=== PATIENT | female | born 1975 | race Caucasian/White ===

== ENCOUNTER 2020-03-02 10:46 | Emergency (ER) | payer SELFPAY ==
[2020-03-02 10:49] VITALS: BMI 32.8
[2020-03-02 10:53] VITALS: BP 116/86; PULSE 75; RESP 16; TEMP 36.8; O2SAT 97
--- NOTE | 2020-03-02 11:04 | ED_ITS ---
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 and no drainage have been MD complaint: abscess/boil Tetanus up to date: unsure Location: back Severity: mild Quality: aching Pain Consistency: constant Associated symptoms: Reports no associated symptoms; Deny chills, fever(s), nausea or vomiting Review of Systems Const: Denies: fever(s), chills or body aches Eyes: Denies: change in vision or blurry vision ENMT: Denies: throat pain or nasal congestion Card: Denies: chest pain or dyspnea on exertion Resp: Denies: dyspnea, productive cough or non-productive cough GI: Denies: abdominal pain, nausea or vomiting Musc: Denies: extremity pain Skin/Breast: Reports: skin swelling (Right shoulder blade area); Denies: rash Neuro: Denies: headache(s) Psych: Denies: anxiety or depression Iván/Lymph: Denies: easy bruising PFS ED PFSH: Social History (Updated 11/13/19 @ 10:07 by Kalani Lutz LPN) Smoking and tobacco status: current every day smoker Physical Exam Const: COMMON NORMALS: no acute distress, average body habitus and patient oriented x3 HENMT: COMMON NORMALS: normocephalic HEAD & SCALP: normal to inspection and normocephalic FACE & SINUS: normal facial exam Eye: COMMON NORMALS: conjunctivae normal GENERAL EYE: appearance normal, both eyes and all related structures CONJUNCTIVA: Yes conjunctivae normal Neck/C-Spine: COMMON NORMALS: no JVD Chest: COMMONS NORMALS: normal inspection of the chest Resp: COMMON NORMALS: normal respiratory effort and clear to auscultation bilaterally AUSCULTATION: clear to auscultation bilaterally Cardio: COMMON NORMALS: no JVD, regular rate and regular rhythm RATE: regular rate RHYTHM: regular rhythm GI: COMMON NORMALS: Normal to inspection, nondistended, normoactive bowel sounds present Extremity: COMMON NORMALS: normal to inspection and full ROM Neuro: COMMON NORMALS: patient oriented x3 Skin: OTHER: Area of erythema to the right shoulder blade firm and tender Course Vital Signs: Vital signs: Vital Signs Temperature 98.2 F 03/02/20 10:53 Pulse Rate 75 03/02/20 10:53 Respiratory Rate 16 03/02/20 10:53 Blood Pressure 116/86 03/02/20 10:53 Pulse Oximetry 97 03/02/20 10:53 Discharge Plan Discharge Prescriptions: No Action buspirone 5 mg tablet 5 mg PO ONCE PRNRF: 0 Coding Level of Care Code ED Rivet Machine Operator for Mars Meyer
[2020-03-02] MEDS: lidocaine 1% INJ 20 mL INTRADERMA (11:25)
[2020-03-02 11:57] VITALS: BP 114/82; PULSE 72; RESP 17; O2SAT 98
== END 2020-03-02 11:57 | disposition home or self-care (01) ==
PROVIDERS: Emergency Provider Nurse Practitioner Family; PCP Nurse Practitioner Family
DX: L98.9 Disorder of the skin and subcutaneous tissue, unspecified (principal); F17.210 Nicotine dependence, cigarettes, uncomplicated
CPT/HCPCS: 12345; 99281; 99282; J2001

== ENCOUNTER → 2020-10-22 12:23 | Outpatient (BNVA) | payer SELFPAY | PROVIDERS: PCP Nurse Practitioner Family; Visit Provider Family Medicine | DX: Z20.828 Contact with and (suspected) exposure to other viral communicable diseases (principal) | CPT/HCPCS: 87635 ==

== ENCOUNTER 2021-01-02 09:30 | Emergency (ER) | payer SELFPAY ==
[2021-01-02] VITALS (7 sets, daily range): BP systolic 96–138; BP diastolic 61–80; PULSE 60–92; RESP 14–19; TEMP 36.6; O2SAT 91–99; BMI 34.7
--- NOTE | 2021-01-02 10:38 | CT_ITS ---
WS: [id number] CT ABDOMEN PELVIS TECHNIQUE: Contrast-enhanced CT of the abdomen and pelvis with coronal and sagittal reformatted image s. CLINICAL INFORMATION: hx of ovarian cyst/mass, worsening pain COMPARISON: None. DLP: 1833.[address] scans at [facility] use at least one of these dose optimization techniques: automat ed exposure control; mA and/or kV adjustment per patient size (includes targeted exams where dose is matched to clinical indication); or iterative reconstruction. FINDINGS: No available comparisons. Large low-attenuation lobulated pelvic mass extending into the upper abdomen in the midline. This dem onstrates multiple enhancing internal septations and measures approximately 31.3 x 13.3 x 21.5 cm. Th is appears well encapsulated with peripheral enhancing ovarian tissue. This is presumably ovarian in origin and likely arising from the right ovary/adnexa. Small amount of fluid along the right adnexa. No significant free fluid in the abdomen or pelvis. Large mass displaces the bowel loops in the abdom en and pelvis. The bladder and uterus are completely compressed anteriorly. Craniocaudal mass effect on the sigmoid colon and rectum which is compressed posteriorly along the sacrum. Lung bases are well aerated. Normal liver. Portal vein and splenic vein are patent. Normal gallbladde r. Normal spleen. Normal GE junction. Adrenal glands are normal. Normal renal parenchymal enhancement . Mild right hydronephrosis. Mild right ureterectasis presumably due to ureteral compression along th e mid and distal ureter from the large pelvic mass. No hydronephrosis in the left kidney. Normal panc reatic parenchymal enhancement. Normal caliber abdominal aorta. CT/CT abdomen pelvis w con* [id number] IMPRESSION: 1. Large low-attenuation well encapsulated pelvic mass extending into the uppe r abdomen with internal enhancing septations. This is CODING ASSISTANT in origin and likely arises from the right ovary. Differential considerations include serous or muci nous cystadenoma or cystadenocarcinoma. Recommend surgical consultation for res ection. 2. Eccentric compression of the surrounding bowel loops in the abdomen and pel vis. Uterus and bladder compressed anteriorly and sigmoid colon/rectum are comp ressed dorsally. 3. Mild right hydronephrosis with mild right ureterectasis due to compression of the ureter in the mid and distal pelvis due to the large CODING ASSISTANT mass. Left uret er appears decompressed. 4. No abdominal or pelvic lymphadenopathy. No inguinal lymphadenopathy. Notified Cassy Talbot MD at 01/02/2021 12:22 PM.
[2021-01-02] MEDS: fentaNYL 50 mcg/mL INJ 2mL 100 MCG IVP (10:42)
[2021-01-02] MEDS: ondansetron 2 mg/ML SDV 2 mL 4 MG IVP (10:42)
--- NOTE | 2021-01-02 10:45 | ED_ITS ---
HPI - Abdominal Pain General: Chief Complaint: Abdominal Pain Stated Complaint: PAIN WITH ABD MASS Time Seen by Provider: 01/02/21 10:25 Source: patient Mode of arrival: ambulatory Limitations: no limitations History of Present Illness: HPI narrative: 45-year-old female with a rapidly enlarging pelvic mass, diagnosed as ovarian neoplasm at an outside hospital when she was visiting out of town. She followed up outpatient there, and has surgery scheduled for January 20, however she lives in this area and wants to have her care locally. She is also becoming more and more uncomfortable, and hoping that she can get the surgery sooner. She started having abdominal distention proximately 3 month ago. Progressed rapidly, now she is unable to work, she is finding it difficult to urinate, she cannot lay on her back due to the weight of the mass. She denies any vaginal bleeding or discharge. She had a normal Pap smear at the outpatient follow-up 2 weeks ago. She has decreased appetite, feels full quickly. Denies any lower extremity edema. She does have shortness of breath due to the compressive effect of the mass. He does have a family history of colon and breast cancer. MD elicited complaint: abdominal pain Pertinent past history: gastrointestinal bleeding Associated Symptoms: Reports bloating and heartburn; Denies change in bowel habits, chills, dysuria, excessive flatus, fever(s), hematemesis, nausea and vomiting Review of Systems General: Reports: 10 or more systems reviewed and unremarkable except in HPI and below Const: Reports: body aches, change in appetite, change in weight, fatigue and malaise; Denies: fever(s), chills, night sweats or diaphoresis ENMT: Denies: odynophagia or oral sores Card: Denies: chest pain, palpitations, irregular heart rhythm, edema or swelling of feet/ankles Resp: Reports: dyspnea; Denies: non-productive cough or wheezing GI: Reports: abdominal pain, heartburn and bloating; Denies: nausea, vomiting, hematemesis, excessive flatus, change in bowel habits, pain on defecation or rectal swelling : Reports: difficulty voiding and urinary frequency; Denies: dysuria Musc: Denies: neck pain or back pain Skin/Breast: Denies: rash or pruritus Neuro: Reports: difficulty walking; Denies: headache(s), numbness in extremities or weakness in extremities Psych: Reports: sleeping less; Denies: anxiety or depression Endo: Reports: tired all the time; Denies: polyuria or polydipsia Iván/Lymph: Denies: easy bruising, easy bleeding, petechiae or purpura PFSH ED PFSH: Social History Smoking and tobacco status: current every day smoker cigarettes Packs smoked per day: 1 Alcohol intake: current Alcohol intake frequency: holidays/special occasions only Physical Exam Const: COMMON NORMALS: patient oriented x3, healthy appearing, alert and well nourished GENERAL APPEARANCE: cooperative; not in distress NUTRITIONAL APPEARANCE: overweight ORIENTATION/CONSCIOUSNESS: Yes awake, Yes oriented to person, Yes oriented to place and Yes oriented to time HENMT: COMMON NORMALS: normocephalic and atraumatic HEAD & SCALP: normocephalic and atraumatic FACE & SINUS: normal facial exam and face symmetric Eye: COMMON NORMALS: Equal, round and reactive pupils present, EOMs intact bilaterally, conjunctivae normal and no scleral icterus GENERAL EYE: appearance normal, both eyes and all related structures ALIGNMENT: Yes alignment normal PERIORBITAL: periorbital findings normal EYELID: eyelids normal CONJUNCTIVA: Yes conjunctivae normal Neck/C-Spine: COMMON NORMALS: full ROM and no lymphadenopathy; negative for no JVD Chest: COMMONS NORMALS: normal inspection of the chest and normal palpation of entire chest wall Cardio: COMMON NORMALS: regular rate and regular rhythm; negative for no JVD RATE: regular rate RHYTHM: regular rhythm GI: INSPECTION: No Abdominal wall edema, No Anasarca and Yes abdominal distension AUSCULTATION: Yes normoactive bowel sounds PALPATION: Yes Firmness to palpation present (GI), No Guarding due to palpation present (GI), No Rigid due to palpation, Yes Palpable mass present (Entire abdomen, proximal size of 40-week gestation) and No Pulsatile mass present Extremity: COMMON NORMALS: normal to inspection, full ROM, capillary refill normal and no clubbing, cyanosis or edema Neuro: COMMON NORMALS: patient oriented x3, CN's II-XII intact bilaterally, moves all extremities, no focal motor deficits and no sensory deficits noted SENSORIUM/ORIENTATION: Yes alert, Yes oriented to person, Yes oriented to place and Yes oriented to time Skin: COMMON NORMALS: no rashes or lesions noted, no wounds, turgor normal, no jaundice, no petechiae and no mottling GENERAL SKIN EXAM: no rashes or lesions noted and turgor normal Course Vital Signs: Vital signs: Vital Signs Temperature 97.9 F 01/02/21 09:47 Pulse Rate 60 01/02/21 14:48 Respiratory Rate 18 01/02/21 14:48 Blood Pressure 108/62 01/02/21 14:48 Pulse Oximetry 98 01/02/21 14:48 MDM - Abdominal Pain MDM Narrative: Medical decision making narrative: 45-year-old female with rapidly growing pelvic mass, originating from the right ovary. She is very uncomfortable, but in no acute distress at this time. Her vital signs are normal, she is not in any respiratory distress. CBC and chemistry nonacute. Discussed the CT findings with Dr. Radford, SINK MAKER. She will try and see the patient on Tuesday in clinic to make sure that she gets set up with [facility] in [place]. This kind of surgery will require higher level of care center. Unless there is suspicion for torsion, there is no indication for surgical intervention emergently at this time. She does not have tenderness, her lactic acid level is normal, and it would be highly unusual for a mass this size to become torsed, so my suspicion for that is very low. I explained all this to the patient and her . They were understandably upset and frustrated that they would have to continue waiting for resolution to this problem, but I assured them that it was of utmost importance that the surgery be done properly?which requires careful planning and preparation. I will also submit a referral to Dr. Garcia, [facility] in [place]. I recommended that she return immediately to the ER if she developed severe pain, if she was unable to urinate, she developed a fever or chest pain. Medical Records: Attestation: I reviewed the patient's medical records. Lab Data: Attestation: I reviewed the patient's lab results. Labs: Lab Results 01/02/21 01/02/21 01/02/21 Range/Units 10:30 10:43 10:43 WBC 8.7 (4.0-10.0) 10^3/ uL RBC 5.27 (4.1-5.3) 10^6/u L Hgb 15.3 (11.5-15.3) g/dL Hct 51.9 H (37.0-47.0) % MCV 98.5 (81-99) fL MCH 29.0 (28.0-34.0) pg MCHC 29.5 L (30.0-36.0) g/dL RDW 13.0 (12.1-15.1) % Plt Count 232 (130-400) 10^3/c mm MPV 11.5 H (7.4-10.4) fL Neut % (Auto) 64.9 % Lymph % (Auto) 27.3 % Carver % (Auto) 5.4 % Eos % (Auto) 1.3 % Baso % (Auto) 0.9 % Neut # (Auto) 5.66 (1.8-7.7) 10^3/u L Lymph # (Auto) 2.4 (0.8-4.8) 10^3/u L Carver # (Auto) 0.5 (0.2-0.9) 10^3/u L Eos # (Auto) 0.1 (0.0-0.8) 10^3/u L Baso # (Auto) 0.1 (0.0-0.1) 10^3/u L Nucleated RBC % (a uto) 0 % Nucleated RBCs # 0.0 /100WBC Sodium 135 L (136-145) mmol/L Potassium 4.2 (3.5-5.1) mmol/L Chloride 103 (98-107) mmol/L Carbon Dioxide 20 L (22-29) mmol/L Anion Gap 16.2 (5-19) BUN 9 (6-20) mg/dL Creatinine 0.8 (0.5-0.9) mg/dL GFR Calculation 77.9 L (90-130) mL/min Glucose 90 (65-115) mg/dL Calculated Osmolal ity 278 L (285-295) mOsm/k g Lactate 1.2 (0.5-2.2) mmol/L Calcium 9.2 (8.5-10.5) mg/dL Total Bilirubin 0.3 (0.15-1.2) mg/dL AST 15 (0-32) U/L ALT 12 (0-33) U/L Alkaline Phosphata se 97 (35-105) IU/L Lactate Dehydrogen ase 150 (135-214) U/L C-Reactive Protein 4.7 (0.0-4.9) mg/L Total Protein 7.4 (6.6-8.7) g/dL Albumin 4.2 (3.5-5.2) g/dL Globulin 3.2 (1.3-4.6) g/dL Urine Color (Yellow) Urine Appearance (CLEAR) Urine pH (5-7) Ur Specific Gravit y (1.005-1.030) Urine Protein (Negative) Urine Glucose (UA) (Normal) Urine Ketones (Negative) Urine Blood (Negative) Urine Nitrate (Negative) Urine Bilirubin (Negative) Urine Urobilinogen (Negative) mg/dL Ur Leukocyte Nuria ase (Negative) 01/02/21 Range/Units 11:30 WBC (4.0-10.0) 10^3/ uL RBC (4.1-5.3) 10^6/u L Hgb (11.5-15.3) g/dL Hct (37.0-47.0) % MCV (81-99) fL MCH (28.0-34.0) pg MCHC (30.0-36.0) g/dL RDW (12.1-15.1) % Plt Count (130-400) 10^3/c mm MPV (7.4-10.4) fL Neut % (Auto) % Lymph % (Auto) % Carver % (Auto) % Eos % (Auto) % Baso % (Auto) % Neut # (Auto) (1.8-7.7) 10^3/u L Lymph # (Auto) (0.8-4.8) 10^3/u L Carver # (Auto) (0.2-0.9) 10^3/u L Eos # (Auto) (0.0-0.8) 10^3/u L Baso # (Auto) (0.0-0.1) 10^3/u L Nucleated RBC % (a uto) % Nucleated RBCs # /100WBC Sodium (136-145) mmol/L Potassium (3.5-5.1) mmol/L Chloride (98-107) mmol/L Carbon Dioxide (22-29) mmol/L Anion Gap (5-19) BUN (6-20) mg/dL Creatinine (0.5-0.9) mg/dL GFR Calculation (90-130) mL/min Glucose (65-115) mg/dL Calculated Osmolal ity (285-295) mOsm/k g Lactate (0.5-2.2) mmol/L Calcium (8.5-10.5) mg/dL Total Bilirubin (0.15-1.2) mg/dL AST (0-32) U/L ALT (0-33) U/L Alkaline Phosphata se (35-105) IU/L Lactate Dehydrogen ase (135-214) U/L C-Reactive Protein (0.0-4.9) mg/L Total Protein (6.6-8.7) g/dL Albumin (3.5-5.2) g/dL Globulin (1.3-4.6) g/dL Urine Color Yellow (Yellow) Urine Appearance Clear (CLEAR) Urine pH 5 (5-7) Ur Specific Gravit y 1.015 (1.005-1.030) Urine Protein Neg (Negative) Urine Glucose (UA) Norm (Normal) Urine Ketones Negative (Negative) Urine Blood Neg (Negative) Urine Nitrate Negative (Negative) Urine Bilirubin Neg (Negative) Urine Urobilinogen Norm (Negative) mg/dL Ur Leukocyte Nuria ase Negative (Negative) Discharge Plan Discharge Patient Disposition: Home Clinical Impression: Ovarian mass Condition: Stable Prescriptions: [place] 10-325 mg tablet 1 tab PO TID PRN (Reason: pain) Qty: 20 RF: 0 Colace 100 mg capsule 200 mg PO BID Qty: 60 RF: 0 No Action buspirone 5 mg tablet 5 - 10 mg PO BID PRN (Reason: Anxiety) RF: 0 doxycycline hyclate 100 mg capsule 100 mg PO BID RF: 0 hydrocodone-acetaminophen 5-325 mg tablet 1 tab PO Q6H PRN (Reason: pain) Qty: 7 RF: 0 Discharge Orders: Discharge ED (Routine); Ordered 01/02/21 Ordered By: Cassy Talbot Referrals: Erwin Garcia MD [Referring] - 4-7 days (ER followup, ovarian mass) Dora Radford MD [Physician] - 1-3 days (ER followup- Ovarian Mass) Sandi Vigil APN [Primary Care Provider] - Discharge Diet: Advance as tolerated Discharge Activity: Resume usual activity Patient Instructions: Opioid Safety Activity Restrictions/Additional Instructions: Call Dr. Radford's office on Tuesday morning to schedule follow-up appointment. She will also help make sure that you get referred to the gynecologic oncologist in [place], Dr. Garcia. Try to lay on your left side instead of flat on your back to avoid low blood pressure and dizziness. Trying to keep up with your fluid intake, the mass is compressing a lot of your intestines, so easy to digest full liquid diet is recommended(pudding, soup, Jell-O, milkshakes etc.) Return immediately to the ER if you develop fever, if you are unable to urinate, if you have vomiting and cannot keep anything down, or you develop worsening pain. Stand Alone Forms: Work/School Release Coding Level of Care Code ED Frame Gate Mortiser Operator for Mars Meyer
[2021-01-02 10:46] LABS: Basophils # 0.1 10^3/uL (0.0-0.1); Basophils % 0.9 %; Eosinophils # 0.1 10^3/uL (0.0-0.8); Eosinophils % 1.3 %; Hematocrit 51.9 % (37.0-47.0); Hemoglobin 15.3 g/dL (11.5-15.3); Lymphocytes # 2.4 10^3/uL (0.8-4.8); Lymphocytes % 27.3 %; Mean Corpuscular HGB Conc 29.5 g/dL (30.0-36.0); Mean Corpuscular Volume 98.5 fL (81-99); Mean Platelet Volume 11.5 fL (7.4-10.4); Monocytes # 0.5 10^3/uL (0.2-0.9); Monocytes % 5.4 %; Neutrophils # 5.66 10^3/uL (1.8-7.7); Neutrophils % 64.9 %; Nucleated Red Blood Cells % 0 %; Platelet Count 232 10^3/cmm (130-400); Red Blood Count 5.27 10^6/uL (4.1-5.3); White Blood Count 8.7 10^3/uL (4.0-10.0)
[2021-01-02 11:21] LABS: Lactate (Lactic Acid level) 1.2 mmol/L (0.5-2.2)
[2021-01-02] MEDS: iohexol 300 mg/mL 100 mL Btl IV (11:43)
[2021-01-02 11:51] LABS: Add Urine Microscopic? NO
[2021-01-02 11:58] LABS: Alanine Aminotransferase 12 U/L (0-33); Albumin Level 4.2 g/dL (3.5-5.2); Alkaline Phosphatase 97 IU/L (35-105); Anion Gap 16.2 (5-19); Aspartate Amino Transferase 15 U/L (0-32); Blood Urea Nitrogen 9 mg/dL (6-20); C Reactive Protein 4.7 mg/L (0.0-4.9); Calcium 9.2 mg/dL (8.5-10.5); Carbon Dioxide 20 mmol/L (22-29); Chloride 103 mmol/L (98-107); Globulin 3.2 g/dL (1.3-4.6); Glomerular Filtration Rate 77.9 mL/min (90-130); Glucose 90 mg/dL (65-115); Lactate Dehydrogenase 150 U/L (135-214); Osmolality Calculated 278 mOsm/kg (285-295); Potassium 4.2 mmol/L (3.5-5.1); Sodium 135 mmol/L (136-145); Total Bilirubin 0.3 mg/dL (0.15-1.2); Total Protein 7.4 g/dL (6.6-8.7)
[2021-01-02 12:00] LABS: Bilirubin Urine Neg (Negative); Blood Urine Neg (Negative); Glucose Urine UA Norm (Normal); Ketones Urine Negative (Negative); Leukocyte Esterase Urine Negative (Negative); Nitrate Urine Negative (Negative); Protein Urine Neg (Negative); Specific Gravity, Urine 1.015 (1.005-1.030); Urine Appearance Clear (CLEAR); Urine Color Yellow (Yellow); Urobilinogen Urine Norm (Negative); pH Urine 5 (5-7)
[2021-01-02] MEDS: morphine 4 mg/mL SDV 1 mL 8 MG IVP (13:24)
== END 2021-01-02 14:49 | disposition home or self-care (01) ==
PROVIDERS: Emergency Provider Family Medicine; PCP Nurse Practitioner Family
DX: N83.9 Noninflammatory disorder of ovary, fallopian tube and broad ligament, unspecified (principal); F17.210 Nicotine dependence, cigarettes, uncomplicated
CPT/HCPCS: 36415; 74177; 80053; 81003; 81500; 83605; 83615; 85025; 86140; 96374; 96375; 99283; J2270; J2405; J3010; Q9967

== ENCOUNTER 2023-03-16 10:18 | Outpatient (CLI) | payer OTHER, SELFPAY ==
--- NOTE | 2023-03-16 10:32 | MM_ITS ---
WS: [id number] BILATERAL SCREENING DIGITAL TOMOSYNTHESIS MAMMOGRAM WITH CAD HISTORY: SCREENING COMPARISON: 11/28/2014 Bilateral CC and MLO views with tomosynthesis and synthetic mammography submitted. Computer aided det ection analyzed. Breast composition: There are scattered areas of fibroglandular density. No suspicious masses, microc alcifications or architectural distortion. This is a 5 mm mass in the central LEFT breast. This was p robably present in 2015 but not visualized due to overlying fibroglandular tissue. No increase in siz e since the prior study. May be a small lymph node. No suspicious findings. Surgical clips in the upp er outer quadrant near the axillary tail RIGHT breast. MM/[place] [id number] IMPRESSION: BI-RADS: 2-Benign FOLLOW UP: 1 Year Follow-up
== END 2023-03-16 10:19 | disposition home or self-care (01) ==
PROVIDERS: PCP Nurse Practitioner Family; Visit Provider Nurse Practitioner Family
DX: Z12.31 Encounter for screening mammogram for malignant neoplasm of breast (principal)
CPT/HCPCS: 77063; 77067

== ENCOUNTER 2023-05-23 12:19 | Day surgery (SDC) | payer OTHER, SELFPAY ==
[2023-05-20 12:02] VITALS: BMI 29.0
[2023-05-23] VITALS (10 sets, daily range): BP systolic 93–122; BP diastolic 59–77; PULSE 55–86; RESP 16–30; TEMP 36.2–36.3; O2SAT 97–100
--- NOTE | 2023-05-23 12:50 | P.HP_ITS ---
Providers/Chief Complaint Primary Care Provider: Sandi Vigil APN Chief Complaint: Subcutaneous mass History of Present Illness Mayuri Gallegos is a 48 year old female Medications/Allergies Home Medications Medication Instructions Recorded Confirmed Last Taken Type phentermine 37.5 mg capsule 37.5 mg PO DAILY 03/29/23 05/23/23 3 Weeks Ago History ~05/02/23 estradiol 1 mg tablet 1 mg PO DAILY #90 tabs 04/20/23 05/23/23 05/23/23 Rx venlafaxine 37.5 mg 37.5 mg PO DAILY #30 caps 04/20/23 05/23/23 05/22/23 Rx capsule,extended release 24 hr (Effexor XR) Allergies Allergy/AdvReac Type Severity Reaction Status Date / Time Penicillins Allergy rash Verified 04/29/23 12:51 PFSH Acute PFSH: Medical History No pertinent past medical history neghx: htn,dm,thyroid,dvt/pe Ovarian cystic mass cystadenomal-- benign; removed during hysterectomy at [facility] Surgical History H/O tubal ligation History of lumpectomy of right breast Hx of colonoscopy with polypectomy 7 yrs ago Hx of hysterectomy (~01/15/21) XIOMARA, BSO, umbilical hernia repair--- performed in [place] due to large ovarian mass-- benign pathology(see scanned document) Family History Mother Cancer breast cancer, colon cancer Father Cancer Adrenal gland Grandmother Cancer uteran cancer Grandfather Cancer lung cancer A&P Assessment and plan (1) Subcutaneous mass: Plan Excision of subcutaneous masses of right arm and posterior neck Attestations Medical Necessity Statement*: Home Coding Level of Care Code Acute Code for Chg Fwd Diagnoses Subcutaneous mass R22.9
[2023-05-23] MEDS: vancomycin 1,500 MG/300 ML PIGGYBACK 200 MG IV (12:54)
[2023-05-23] MEDS: sodium chloride 0.9% 1,000 ML 30 ML IV (12:56)
--- NOTE | 2023-05-23 13:03 | P.ANESASSM_ITS ---
Pre-Anesthetic Assessment Height/Weight: Height 1.7 m Weight 83.915 kg Temp Pulse Resp BP Pulse Ox O2 Del Method 97.1 F L 82 18 122/77 97 Room Air 05/23/23 12:27 05/23/23 12:27 05/23/23 12:27 05/23/23 12:27 05/23/23 12:27 05/23/23 12:27 Operation Date: 05/23/23 13:55 Proposed Procedures p [id number] excision of subcutaneous masses of right arm and posterior neck R22.9(Right) - Shayan Palomares DO Familial anesthetic complications: nOne Was Beta Juju taken within 24 hours: N/A Was Clonidine taken within 24 hours: N/A Last intake: Intake Last Liquid Date 05/23/23 Last Liquid Time 07:00 Last Solid Date 05/22/23 Last Solid Time 23:15 Social Tobacco and No alcohol Exam alert, oriented x 3, clear to auscultation bilaterally and regular rate & rhythm Airway Mallampati: Class II Dentition: full Anesthetic Plan ASA status: 2 Anesthesia: General Risk of > 500 ml blood loss (7ml/kg in children): No Medications/Allergies Home Medications Medication Instructions Recorded Confirmed Last Taken Type phentermine 37.5 mg capsule 37.5 mg PO DAILY 03/29/23 05/23/23 3 Weeks Ago History ~05/02/23 estradiol 1 mg tablet 1 mg PO DAILY #90 tabs 04/20/23 05/23/23 05/23/23 Rx venlafaxine 37.5 mg 37.5 mg PO DAILY #30 caps 04/20/23 05/23/23 05/22/23 Rx capsule,extended release 24 hr (Effexor XR) Allergies Allergy/AdvReac Type Severity Reaction Status Date / Time Penicillins Allergy rash Verified 04/29/23 12:51 Current Medications Generic Name Dose Route Start Last Admin Trade Name Freq PRN Reason Stop Dose Admin Vancomycin/PEG/NADA/Lysine/Water 1,500 mg in 300 mls @ 200 mls/hr 05/23/23 12:27 05/23/23 12:54 Vancocin IV 05/23/23 13:56 200 mls/hr INFORMATION MANAGEMENT SPECIALIST ONE Administration Protocol Sodium Chloride 1,000 mls @ 30 mls/hr 05/23/23 12:30 05/23/23 12:56 Sodium Chloride 0.9% IV 05/24/23 12:29 30 mls/hr .Q24H DORENE Administration PFSH Anesthesia Medical History No pertinent past medical history neghx: htn,dm,thyroid,dvt/pe Ovarian cystic mass cystadenomal-- benign; removed during hysterectomy at [facility] Surgical History H/O tubal ligation History of lumpectomy of right breast Hx of colonoscopy with polypectomy 7 yrs ago Hx of hysterectomy (~01/15/21) XIOMARA, BSO, umbilical hernia repair--- performed in [place] due to large ovarian mass-- benign pathology(see scanned document) Family History Mother Cancer breast cancer, colon cancer Father Cancer Adrenal gland Grandmother Cancer uteran cancer Grandfather Cancer lung cancer Data Anesthesia Cardiac Studies: No Data to Display
[2023-05-23] MEDS: lidocaine-epi 2% 20 mL INJ INJECTION (13:41)
--- NOTE | 2023-05-23 15:22 | ANE.PACU2 ---
Inpatient post-anesthesia follow up: Airway intact: Yes Vital signs: Temperature 97.2 F Pulse Rate 55 Respiratory Rate 18 Blood Pressure 106/59 Pulse Oximetry 97 Oxygen Delivery Me thod Room Air Oxygen Flow Rate 10 Fraction of Inspir ed Oxygen Hydration adequate: Yes Nausea and vomiting: Yes Pain level: 1 Mental status: Baseline
[2023-05-23] MEDS: HYDROcodone-acetaminophen 10-325 mg Tablet 1 TAB PO (15:36)
--- NOTE | 2023-05-23 16:06 | PM.OP ---
Operative Report Date of procedure: May 23, 2023 Pre-op diagnosis: Subcutaneous mass of right arm and posterior neck Post-op diagnosis: same Procedure done: Excision of subcutaneous mass of right arm and posterior neck Implants: None Specimens removed/disposition: Elliptical excisions of subcutaneous masses of right arm and posterior neck Surgeon: Dr. Shayan Palomares DO Anesthesia: General Complications: None apparent Brief History: This very pleasant 48-year-old female who presented to my office with painful subcutaneous masses of her right arm and posterior neck. Excision was indicated. The risk and benefits were explained and documented. Procedure: Patient was wheeled in operative room placed on the OR table in supine position. General endotracheal intubation was achieved by the department anesthesia. The patient was then placed into the left lateral decubitus position. The right arm and posterior neck were inspected prepped and draped in usual sterile fashion. Timeout was performed. All present were in agreement. 2% lidocaine with epinephrine was used to anesthetize the area over both lesions. Elliptical excisions of skin with a 15 blade scalpel were performed. Dissection was carried down to subcutaneous tissue around a cystic mass in both locations with electrocautery. Posterior neck mass was 3.5 cm in greatest diameter and right arm mass was 3 cm in greatest diameter. Electrocautery was used for hemostasis. Dermis was approximated with 3-0 Vicryl. Skin was closed with 3-0 Monocryl in a running fashion. Dermabond was applied. Patient tolerated procedure well.
== END 2023-05-23 15:50 | disposition home or self-care (01) ==
PROVIDERS: PCP Nurse Practitioner Family; Visit Provider Surgery
PROC: (CPT 21556; principal; 2023-05-23 13:45)
DX: L72.0 Epidermal cyst (principal)
CPT/HCPCS: 21556; 25073; 88307; J1100; J2405; J2704; J2710; J3010; J3370; J3490; J7030